=== PATIENT | female | born 1980 | race Caucasian/White ===

== ENCOUNTER → 2021-03-30 | Outpatient (CLI) | payer OTHER ==
[2021-03-30 09:10] LABS: BUN/CREATININE RATIO 19 (0-10)
[2021-03-31 10:13] LABS: ANTISTREPTOLYSIN O AB 27.3 IU/mL (0.0-200.0); COMPLEMENT C3, SERUM 108 mg/dL (82-167); COMPLEMENT C4, SERUM 14 mg/dL (12-38); RHEUMATOID ARTHRITIS FACTOR <10.0 IU/mL (0.0-13.9)
[2021-04-02 14:10] LABS: ANTI-DSDNA ANTIBODIES 12 IU/mL (0-9); ANTICHROMATIN ANTIBODIES <0.2 AI (0.0-0.9)
== END ==
LOC: LAB 08:09
PROVIDERS: Nurse Practitioner Family
DX: M19.021 Primary osteoarthritis, right elbow (principal); L40.9 Psoriasis, unspecified; M25.50 Pain in unspecified joint
CPT/HCPCS: 36415; 80053; 84550; 85652; 86038; 86060; 86140; 86160; 86200; 86225; 86431